=== PATIENT | female | born 1945 | race Caucasian/White ===

== ENCOUNTER → 2017-09-20 | Outpatient (CLI) | payer OTHER ==
[~2017-09-20] MED LIST: ADAL40KI SC; ASPI81TA28 PO; CHOL2000 PO; DULO60CA44 PO; FESO8TAB PO; FOLI1TAB8 PO; HYDR-5806 PO; IBUP-1451 PO; LEUC5TAB PO; LISI20TA3 PO; METH2.5T PO; MODA200T42 PO; MULT-827; MULTTAB58 PO; OMEG100046 PO; OXYC15TA89 PO; PRAV20TA2 PO; PRLSR20 PO; TRAZ1TAB96 PO
--- NOTE | 2017-09-20 14:10 | DIAGNOSTIC IMAGING REPORT ---
CHEST 2 VIEWS ROUTINE CLINICAL HISTORY: N20.1 Ureteral calculus, [id number] preoperative evaluation COMPARISON STUDY: No previous studies for comparison. FINDINGS: The bones soft tissues and hemidiaphragms are normal. The cardiomediastinal silhouette is normal. The lungs are clear. The pulmonary vasculature is normal. IMPRESSION: Negative chest. The above report was generated using voice recognition software. It may contain grammatical, syntax or spelling errors. Electronically signed by: Fred Hirsch M.D. 09/20/2017 2:09 PM Dictated Date/Time: 09/20/2017 2:09 PM
[2017-09-20 15:13] LABS: BASO % 1.4 %; EOS % 5.8 %; EOS ABS # 0.43 K/uL (0-0.5); HEMATOCRIT 32.9 % (37-47); HEMOGLOBIN 10.8 g/dL (12.0-16.0); LYMPH % 24.1 %; LYMPH ABS # 1.78 K/uL (1.2-3.4); MEAN CELL VOLUME 95.6 fL (80-100); MEAN CORPUSCULAR HEMOGLOBIN 31.4 pg (25-34); MEAN CORPUSCULAR HGB CONC 32.8 g/dl (32-36); MEAN PLATELET VOLUME 9.3 fL (7.4-10.4); MONO % 6.4 %; MONO ABS # 0.47 K/uL (0.11-0.59); NEUT % 62.3 %; NEUT ABS # 4.62 K/uL (1.4-6.5); PLATELET COUNT 410 K/uL (130-400); RED CELL DISTRIBUTION WIDTH CV 14.5 % (11.5-14.5); RED CELL DISTRIBUTION WIDTH SD 50.6 fL (36.4-46.3)
[2017-09-20 15:52] LABS: BLOOD UREA NITROGEN 13 mg/dl (7-18); CARBON DIOXIDE 30 mmol/L (21-32); CREATININE 0.72 mg/dl (0.60-1.20); POTASSIUM 4.2 mmol/L (3.5-5.1); SODIUM 142 mmol/L (136-145)
== END | disposition home or self-care (01) ==
LOC: C.CPL 12:57
PROVIDERS: ATTEND Urology
DX: N20.1 Calculus of ureter (principal)

== ENCOUNTER → 2017-09-25 | Outpatient (CLI) | payer OTHER ==
[~2017-09-25] MED LIST changes: +OPTIRAY 300 IV PRN
--- NOTE | 2017-09-25 15:05 | DIAGNOSTIC IMAGING REPORT ---
IVP W/OR W/O TOMOGRAMS CLINICAL HISTORY: N20.1 Ureteral calculus, right COMPARISON STUDY: [facility] 09/14/2017. Outside hospital abdomen and pelvis CT 08/31/2017. FINDINGS: [employer] Operator images demonstrate multiple punctate bilateral renal calculi. Calcifications in the deep pelvis remain stable and likely represent phleboliths. No ureteral calculi identified. Following the intravenous administration of contrast there is prompt and symmetric perfusion of the kidneys. No hydronephrosis. The ureters are normal in course and caliber. No suspicious filling defects within the urinary systems. The bladder is within normal limits. No significant postvoid residual. IMPRESSION: 1. Bilateral nephrolithiasis. 2. No ureteral calculi. 3. No hydronephrosis. 4. No suspicious filling defects seen within the urinary system. Electronically signed by: Immanuel Martinez M.D. 09/25/2017 3:04 PM Dictated Date/Time: 09/25/2017 3:02 PM
== END | disposition home or self-care (01) ==
LOC: C.RAD 13:06
PROVIDERS: ATTEND Urology
DX: N20.0 Calculus of kidney (principal)

== ENCOUNTER → 2017-09-28 | Day surgery (SDC) | payer OTHER ==
[2017-09-21 10:42] VITALS: Ht 157.5 cm; Wt 53.6 kg
[~2017-09-28] VITALS: Ht 157.5 cm; Wt 53.6 kg
[~2017-09-28] MED LIST changes: +CIPROFLOXACIN 400MG / D5W IV SCH; +LACTATED RINGER'S 1000ML 1,000 ML IV SCH; -OPTIRAY 300 IV PRN
== END | disposition home or self-care (01) ==
LOC: EDSTATUS 07:00 → C.PAT 12:41
PROVIDERS: ATTEND Urology